=== PATIENT | female | born 1955 | race Caucasian/White ===

== ENCOUNTER → 2016-09-25 | Outpatient (CLI) | payer MEDICARE ==
[~2016-09-25] MED LIST: INSULIN GL100 UNITS1 SC; KEFLEX 500MG.500 MG PO; METFORMIN HCL1000 MG PO
[2016-09-25 17:15] LABS: HEMOGLOBIN 15.1 g/dL (12.2-16.2); LYMPH # 2.1 K/mm3 (0.7-4.5); LYMPH % 32.1 % (10-50.0)
--- NOTE | 2016-09-25 19:42 | RADIOLOGY REPORT PS360 ---
CHEST(2 VIEWS-NOT PORTABLE) HISTORY: PNEUMONIA, WHEEZING COMPARISON: 12/16/2013 FINDINGS: The cardiomediastinal silhouette and pulmonary vascularity are within normal limits. The lungs are clear without infiltrates, suspicious nodules, or pleural effusions. Calcified granuloma right upper lobe No acute bony abnormalities. IMPRESSION: No change with no acute finding
== END ==
LOC: LAB 17:02
PROVIDERS: Nurse Practitioner Family
DX: J18.9 Pneumonia, unspecified organism (principal); R50.9 Fever, unspecified; R06.2 Wheezing; R73.9 Hyperglycemia, unspecified; R53.1 Weakness; R11.0 Nausea